=== PATIENT | male | born 1970 | race Caucasian/White ===

== ENCOUNTER → 2016-07-13 | Outpatient (CLI) | payer OTHER ==
[2016-07-13 12:06] LABS: BASO # 0.1 x10^3/uL (0.0-0.2); BASO % 1 % (0-3); EOS % 3 % (0-3); HEMATOCRIT 47.5 % (39.0-53.0); HEMOGLOBIN 15.8 g/dL (13.0-17.5); LYMPH % 26 % (24-48); MEAN CORPUSCULAR HEMOGLOBIN 29 pg (25-35); MEAN CORPUSCULAR HGB CONC 33 g/dL (31-37); MEAN CORPUSCULAR VOLUME 87 fL (79-100); MONO % 10 % (0-9); NEUT % 60 % (31-73); PLATELET COUNT 227 x10^3/uL (140-400); RED BLOOD COUNT 5.49 x10^6/uL (4.30-5.70); RED CELL DISTRIBUTION WIDTH 13.9 % (11.5-14.5); WHITE BLOOD COUNT 11.6 x10^3/uL (4.0-11.0)
[2016-07-13 12:19] LABS: ALBUMIN/GLOBULIN RATIO 0.9 (1.0-1.7); CREATININE 0.8 mg/dL (0.7-1.3); GFR 104.1; POTASSIUM 4.1 mmol/L (3.5-5.1); TOTAL BILIRUBIN 0.3 mg/dL (0.2-1.0); TOTAL PROTEIN 8.5 g/dL (6.4-8.2)
[2016-07-13 12:21] LABS: CHOLESTEROL/HDL RATIO 5.8
== END | disposition home or self-care (01) ==
LOC: LAB 11:36
PROVIDERS: ATTEND Internal Medicine
DX: I10 Essential (primary) hypertension (principal); E78.2 Mixed hyperlipidemia; E11.9 Type 2 diabetes mellitus without complications
CPT/HCPCS: 36415; 80053; 80061; 82043; 82550; 82570; 83036; 84443; 85027

== ENCOUNTER → 2017-07-12 | Outpatient (CLI) | payer OTHER ==
[2017-07-12 12:00] LABS: ADD MAN DIFF? NO
[2017-07-12 12:06] LABS: BASO # 0.2 x10^3/uL (0.0-0.2); BASO % 1 % (0-3); EOS # 0.4 x10^3/uL (0.0-0.7); EOS % 3 % (0-3); HEMATOCRIT 46.6 % (39.0-53.0); HEMOGLOBIN 15.9 g/dL (13.0-17.5); LYMPH # 3.2 x10^3/uL (1.0-4.8); LYMPH % 26 % (24-48); MEAN CORPUSCULAR HEMOGLOBIN 29 pg (25-35); MEAN CORPUSCULAR HGB CONC 34 g/dL (31-37); MEAN CORPUSCULAR VOLUME 84 fL (79-100); MONO # 1.1 x10^3/uL (0.0-1.1); MONO % 8 % (0-9); NEUT # 7.7 x10^3uL (1.8-7.7); NEUT % 61 % (31-73); PLATELET COUNT 235 x10^3/uL (140-400); RED BLOOD COUNT 5.56 x10^6/uL (4.30-5.70); RED CELL DISTRIBUTION WIDTH 13.9 % (11.5-14.5); WHITE BLOOD COUNT 12.6 x10^3/uL (4.0-11.0)
[2017-07-12 12:21] LABS: ALBUMIN 3.9 g/dL (3.4-5.0); ALBUMIN/GLOBULIN RATIO 0.9 (1.0-1.7); ALK PHOS 78 U/L (46-116); ALT (SGPT) 42 U/L (16-63); ANION GAP 10 (6-14); AST (SGOT) 25 U/L (15-37); BLOOD UREA NITROGEN 15 mg/dL (8-26); BUN/CREATININE RATIO 17 (6-20); CALCIUM 9.4 mg/dL (8.5-10.1); CARBON DIOXIDE 28 mmol/L (21-32); CHLORIDE 100 mmol/L (98-107); CHOLESTEROL 145 mg/dL (0-200); CREATINE KINASE 143 U/L (39-308); CREATININE 0.9 mg/dL (0.7-1.3); GFR 90.4; GLUCOSE 163 mg/dL (70-99); HDLC 35 mg/dL (40-60); LDLC 67 mg/dL (0-100); NON-HDL CHOLESTEROL 110 mg/dL (0-129); POTASSIUM 3.6 mmol/L (3.5-5.1); SODIUM 138 mmol/L (136-145); TOTAL BILIRUBIN 0.7 mg/dL (0.2-1.0); TOTAL PROTEIN 8.2 g/dL (6.4-8.2); TRIGLYCERIDES 217 mg/dL (0-150); VLDLC 43 mg/dL (0-40)
[2017-07-12 12:23] LABS: CHOLESTEROL/HDL RATIO 4.1
[2017-07-12 12:31] LABS: THYROID STIM HORMONE (TSH) 3.064 uIU/mL (0.358-3.74)
[2017-07-13 01:13] LABS: HEMOGLOBIN A1C 9.2 % (4.8-5.6)
[2017-07-13 11:25] LABS: CREAT RD UR 107.7 mg/dL (Not Estab.); MICRO CREAT RATIO 17.8 mg/g creat (0.0-30.0); MICROALB RD UR 19.2 ug/mL (Not Estab.)
== END | disposition home or self-care (01) ==
LOC: LAB 11:39
DX: E11.9 Type 2 diabetes mellitus without complications (principal); E78.2 Mixed hyperlipidemia; I10 Essential (primary) hypertension
CPT/HCPCS: 36415; 80053; 80061; 82043; 82550; 82570; 83036; 84443; 85025

== ENCOUNTER → 2017-08-09 | Outpatient (CLI) | payer OTHER ==
[2017-08-09 11:54] LABS: ADD MAN DIFF? NO
[2017-08-09 12:03] LABS: BASO # 0.1 x10^3/uL (0.0-0.2); BASO % 1 % (0-3); EOS # 0.4 x10^3/uL (0.0-0.7); EOS % 4 % (0-3); HEMATOCRIT 41.8 % (39.0-53.0); HEMOGLOBIN 14.4 g/dL (13.0-17.5); LYMPH # 3.2 x10^3/uL (1.0-4.8); LYMPH % 29 % (24-48); MEAN CORPUSCULAR HEMOGLOBIN 29 pg (25-35); MEAN CORPUSCULAR HGB CONC 34 g/dL (31-37); MEAN CORPUSCULAR VOLUME 84 fL (79-100); MONO # 1.1 x10^3/uL (0.0-1.1); MONO % 10 % (0-9); NEUT # 6.1 x10^3uL (1.8-7.7); NEUT % 56 % (31-73); PLATELET COUNT 236 x10^3/uL (140-400); RED BLOOD COUNT 4.97 x10^6/uL (4.30-5.70); RED CELL DISTRIBUTION WIDTH 13.8 % (11.5-14.5); WHITE BLOOD COUNT 10.9 x10^3/uL (4.0-11.0)
[2017-08-09 12:25] LABS: BILIRUBIN,URINE NEGATIVE (NEG); CLARITY,URINE CLEAR; COLOR,URINE YELLOW; GLUCOSE,URINE NEGATIVE (NEG); NITRITE,URINE NEGATIVE (NEG); PROTEIN,URINE NEGATIVE (NEG-TRACE); UROBILINOGEN,URINE 0.2 mg/dL (0.2 mg/dL)
[2017-08-09 12:26] LABS: ALBUMIN 3.9 g/dL (3.4-5.0); ALBUMIN/GLOBULIN RATIO 0.9 (1.0-1.7); ALK PHOS 80 U/L (46-116); ALT (SGPT) 37 U/L (16-63); ANION GAP 10 (6-14); AST (SGOT) 28 U/L (15-37); BLOOD UREA NITROGEN 11 mg/dL (8-26); BUN/CREATININE RATIO 11 (6-20); CALCIUM 9.2 mg/dL (8.5-10.1); CARBON DIOXIDE 28 mmol/L (21-32); CHLORIDE 100 mmol/L (98-107); CHOLESTEROL 105 mg/dL (0-200); CREATINE KINASE 195 U/L (39-308); GFR 80.1; GLUCOSE 103 mg/dL (70-99); HDLC 41 mg/dL (40-60); LDLC 42 mg/dL (0-100); NON-HDL CHOLESTEROL 64 mg/dL (0-129); POTASSIUM 3.8 mmol/L (3.5-5.1); SODIUM 138 mmol/L (136-145); TOTAL BILIRUBIN 1.1 mg/dL (0.2-1.0); TOTAL PROTEIN 8.1 g/dL (6.4-8.2); TRIGLYCERIDES 108 mg/dL (0-150); VLDLC 22 mg/dL (0-40)
[2017-08-09 12:28] LABS: BACTERIA,URINE 0 /HPF (0-FEW); CHOLESTEROL/HDL RATIO 2.6; RBC,URINE 0 /HPF (0-2); SQUAMOUS EPITHELIAL CELL,UR OCC /LPF; WBC,URINE 0 /HPF (0-4)
[2017-08-09 12:37] LABS: THYROID STIM HORMONE (TSH) 2.061 uIU/mL (0.358-3.74)
[2017-08-09 19:15] LABS: CREAT RD UR 52.6 mg/dL (Not Estab.); MICRO CREAT RATIO <5.7 mg/g creat (0.0-30.0); MICROALB RD UR <3.0 ug/mL (Not Estab.)
[2017-08-10 00:15] LABS: HEMOGLOBIN A1C 8.1 % (4.8-5.6)
== END | disposition home or self-care (01) ==
LOC: LAB 11:37
DX: I10 Essential (primary) hypertension (principal); E11.9 Type 2 diabetes mellitus without complications; E78.2 Mixed hyperlipidemia
CPT/HCPCS: 36415; 80053; 80061; 81001; 82043; 82550; 82570; 83036; 84443; 85025

== ENCOUNTER 2019-07-26 03:42 | Emergency (ER) | payer OTHER ==
[~2019-07-26] VITALS: Ht 172.7 cm; Wt 122.7 kg
[2019-07-26 04:05] VITALS: BP 149/90
[2019-07-26] MEDS ORDERED: DIPH,PERTUSS(ACELL),TET VAC/PF 0.5 ML SYRINGE. VAX IM ONE (04:30)
--- NOTE | 2019-07-26 04:58 | PHYS DOC ---
Past Medical History Past Medical History: Diabetes-Type II, Hypertension Additional Past Medical Histor: high cholesterol, Seasonal Allergies Past Surgical History: No Surgical History Smoking Status: Never Smoker Alcohol Use: Occasionally General Adult EDM: Chief Complaint: SKIN PROBLEM HPI: HPI: 48-year-old male past medical history significant for diabetes, hypertension, hyperlipidemia and obesity, presents to the ED with complaints of an abrasion to his right dominant hand, over his pinky that he sustained about 5 PM yesterday after scratching on a trailer hitch. 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 Cannot recall his last tetanus dose. Prior h/o left hand service that required IV antibiotics. No known history of MRSA. Has not on chronic steroids, has no immunocompromise state. infection during Review of systems: Denies associated fever, chills, cough, dyspnea, sore throat, nausea, vomiting, rash, swelling, joint pain, chest pain, hemoptysis, leg swelling, head injury, decreased range of motion or neurologic deficits, neck pain. Review of Systems: Review of Systems: Constitutional: Denies fever or chills. [] Eyes: Denies change in visual acuity. [] HENT: Denies nasal congestion or sore throat. [] Respiratory: Denies cough or shortness of breath. [] Cardiovascular: Denies chest pain or edema. [] GI: Denies abdominal pain, nausea, vomiting, bloody stools or diarrhea. [] : Denies dysuria. [] Musculoskeletal: Denies back pain or joint pain. [] Integument: Denies rash. [] Neurologic: Denies headache, focal weakness or sensory changes. [] Endocrine: Denies polyuria or polydipsia. [] Lymphatic: Denies swollen glands. [] Psychiatric: Denies depression or anxiety. [] Current Medications: Current Medications Medications (Trade) Dose Ordered Sig/Brandi Start Time Stop Time Status Last Admin Dose Admin Diphtheria/ Tetanus/Acell Pertussis (ADACEL TDap SYRINGE) 0.5 ml ONCE ONCE 07/26/19 04:30 07/26/19 04:51 DC 07/26/19 04:49 0.5 ML Physical Exam: PE: Constitutional: Well developed, well nourished, no acute distress, non-toxic appearance. [] HENT: Normocephalic, atraumatic, bilateral external ears normal, oropharynx moist, no oral exudates, nose normal. [] Eyes: EOMI, conjunctiva normal, no discharge. [] Neck: Normal range of motion, no tenderness, supple, no stridor. [] Cardiovascular:Heart rate regular rhythm, no murmur [] Lungs & Thorax: Bilateral breath sounds clear to auscultation [] Abdomen: Bowel sounds normal, soft, no tenderness, no masses, no pulsatile masses. [] Skin: Warm, dry, no erythema, no rash. [] Back: No tenderness, no CVA tenderness. [] Extremities: No tenderness, no cyanosis, no clubbing, ROM intact, no edema, small 3 mm closed abrasion to ulnar aspect right 5th, no erthema/swelling/induration/fluctuance Neurologic: Alert and oriented X 3, normal motor function, normal sensory function, no focal deficits noted. [] Psychologic: Affect normal, judgement normal, mood normal. [] Current Patient Data: Vital Signs: Vital Signs Date Time Temp Pulse Resp B/P (MAP) Pulse Ox O2 Delivery O2 Flow Rate FiO2 07/26/19 04:05 98.2 18 149/90 (109) 97 Room Air 98.2 EKG: EKG: [] Radiology/Procedures: Radiology/Procedures: [] Impression: Left pinky abrasion, encounter for tetanus update. No underlying infection. Strict ED return precautions were given for infection. Encourage PMD follow-up. Tetanus was updated in the ED. All patient's questions were answered and he was stable at time of discharge. Course & Med Decision Making: Course & Med Decision Making Pertinent Labs and Imaging studies reviewed. (See chart for details) [] Dragon Disclaimer: Dragon Disclaimer: This electronic medical record was generated, in whole or in part, using a voice recognition dictation system. Departure Departure Impression: Primary Impression: Abrasion Additional Impression: Need for tetanus, diphtheria, and acellular pertussis (Tdap) vaccine Disposition: 01 HOME, SELF-CARE Condition: STABLE Referrals: MARILU WHITE MD (PCP) Patient Instructions: Abrasions Justicifation of Admission Dx: Justifications for Admission: Justification of Admission Dx: N/A THO GONZALEZ DO Jul 26, 2019 04:58
== END 2019-07-26 04:51 | disposition home or self-care (01) ==
LOC: ER 03:42
DX: S60.416A Abrasion of right little finger, initial encounter (principal); L53.9 Erythematous condition, unspecified; E11.9 Type 2 diabetes mellitus without complications; I10 Essential (primary) hypertension; E78.00 Pure hypercholesterolemia, unspecified; J30.2 Other seasonal allergic rhinitis; E66.9 Obesity, unspecified; Z68.41 Body mass index [BMI] 40.0-44.9, adult; Y29.XXXA Contact with blunt object, undetermined intent, initial encounter; Y93.89 Activity, other specified; Y92.89 Other specified places as the place of occurrence of the external cause; Y99.8 Other external cause status
CPT/HCPCS: 90471; 90715; 99283

== ENCOUNTER → 2019-08-06 | Outpatient (CLI) | payer OTHER ==
[2019-07-26 04:05] VITALS: BP 149/90
[2019-08-06 07:33] LABS: BASO # 0.1 x10^3/uL (0.0-0.2); BASO % 1 % (0-3); EOS # 0.4 x10^3/uL (0.0-0.7); EOS % 7 % (0-3); HEMOGLOBIN 15.1 g/dL (13.0-17.5); LYMPH # 1.4 x10^3/uL (1.0-4.8); LYMPH % 21 % (24-48); MEAN CORPUSCULAR HEMOGLOBIN 28 pg (25-35); MEAN CORPUSCULAR HGB CONC 33 g/dL (31-37); MEAN CORPUSCULAR VOLUME 85 fL (79-100); MONO # 0.5 x10^3/uL (0.0-1.1); MONO % 8 % (0-9); NEUT # 4.1 x10^3/uL (1.8-7.7); NEUT % 63 % (31-73); PLATELET COUNT 199 x10^3/uL (140-400); RED BLOOD COUNT 5.43 x10^6/uL (4.30-5.70); RED CELL DISTRIBUTION WIDTH 13.9 % (11.5-14.5); WHITE BLOOD COUNT 6.5 x10^3/uL (4.0-11.0)
[2019-08-06 08:08] LABS: ALBUMIN 3.9 g/dL (3.4-5.0); CALCIUM 8.5 mg/dL (8.5-10.1); CREATININE 0.9 mg/dL (0.7-1.3); GFR 89.7; POTASSIUM 3.4 mmol/L (3.5-5.1); TOTAL BILIRUBIN 0.6 mg/dL (0.2-1.0)
[2019-08-06 08:09] LABS: CHOLESTEROL/HDL RATIO 4.3
[2019-08-07 02:08] LABS: HEMOGLOBIN A1C 8.6 % (4.8-5.6)
== END | disposition home or self-care (01) ==
LOC: LAB 07:12
PROVIDERS: ATTEND Internal Medicine
DX: E11.9 Type 2 diabetes mellitus without complications (principal); E78.2 Mixed hyperlipidemia
CPT/HCPCS: 36415; 80053; 80061; 82043; 82550; 83036; 84443; 85025

== ENCOUNTER → 2019-08-22 | Outpatient (CLI) | payer OTHER ==
[2019-07-26 04:05] VITALS: BP 149/90
== END | disposition home or self-care (01) ==
LOC: LAB 07:05
PROVIDERS: ATTEND Internal Medicine Pulmonary Disease
DX: Z20.828 Contact with and (suspected) exposure to other viral communicable diseases (principal)
CPT/HCPCS: U0003-CS